=== PATIENT | male | born 1985 | race Two or more races ===

== ENCOUNTER 2019-02-07 16:23 | Emergency (ER) | payer OTHER ==
[~2019-02-07] VITALS: Ht 172.7 cm; Wt 99.8 kg
[2019-02-07 16:56] VITALS: BP 142/90
--- NOTE | 2019-02-07 17:16 | PHYS DOC ---
Past Medical History Past Medical History: No Pertinent History Past Surgical History: No Surgical History Alcohol Use: None Drug Use: None Adult General Chief Complaint Chief Complaint: KNEE INJURY HPI HPI Patient is a 33 year old male who presents with left knee pain that has been ongoing since Sunday. The patient was seen at urgent care prior to arrival who sent him to the ER for blood clot evaluation. The patient states that he has not had any trauma to the knee. He did have a recent plane ride at the end of December. Never had a previous blood clot, or any known clotting disorders. He rates his pain as 4 out of 10 in severity and states it throbs. The patient is unable to straighten his knee all the way. Review of Systems Review of Systems Constitutional: Denies fever or chills [] Eyes: Denies change in visual acuity, redness, or eye pain [] HENT: Denies nasal congestion or sore throat [] Respiratory: Denies cough or shortness of breath [] Cardiovascular: No additional information not addressed in HPI [] GI: Denies abdominal pain, nausea, vomiting, bloody stools or diarrhea [] : Denies dysuria or hematuria [] Musculoskeletal: Reports L knee pain. Integument: Denies rash or skin lesions [] Neurologic: Denies headache, focal weakness or sensory changes [] Endocrine: Denies polyuria or polydipsia [] Complete systems were reviewed and found to be within normal limits, except as documented in this note. Current Medications Current Medications Current Medications Medications (Trade) Dose Ordered Sig/[facility] Start Time Stop Time Status Last Admin Dose Admin Ketorolac Tromethamine (Toradol Im) 30 mg 1X ONCE 02/07/19 17:30 02/07/19 17:31 DC 02/07/19 17:38 30 MG Allergies Allergies Allergies Coded Allergies Type Severity Reaction Last Updated Verified No Known Drug Allergies 02/07/19 No Physical Exam Physical Exam Constitutional: Well developed, well nourished, no acute distress, non-toxic appearance. [] HENT: Normocephalic, atraumatic, bilateral external ears normal, oropharynx moist, no oral exudates, nose normal. [] Eyes: PERRLA, EOMI, conjunctiva normal, no discharge. [] Neck: Normal range of motion, no tenderness, supple, no stridor. [] Cardiovascular:Heart rate regular rhythm, no murmur [] Lungs & Thorax: Bilateral breath sounds clear to auscultation [] Abdomen: Bowel sounds normal, soft, no tenderness, no masses, no pulsatile masses. [] Skin: Warm, dry, no erythema, no rash. [] Back: No tenderness, no CVA tenderness. [] Extremities: Tenderness to L knee, -anterior drawer test, mild edema. No erythema. Neurologic: Alert and oriented X 3, normal motor function, normal sensory function, no focal deficits noted. [] Psychologic: Affect normal, judgement normal, mood normal. [] Current Patient Data Vital Signs Vital Signs Date Time Temp Pulse Resp B/P (MAP) Pulse Ox O2 Delivery O2 Flow Rate FiO2 02/07/19 16:56 98.8 101 16 142/90 (107) 99 Room Air 98.8 EKG EKG [] Radiology/Procedures Radiology/Procedures []PATIENT: AISHA REVELES MACCOUNT: [id number]#: [id number] : 1985 LOCATION: ER AGE: 33 SEX: M EXAM STATUS: REG ER ORD. PHYSICIAN: SHANE PAL APRN REASON: pain PROCEDURE: KNEE LEFT 3V Left knee 3 views. HISTORY: Pain 3 views were taken of the left knee. There is not evidence of an acute fracture or osseous abnormality. There is a joint effusion. IMPRESSION: 1. Joint effusion left knee. 2. No osseous abnormality noted. Electronically signed by: Bry Courtney MD (02/07/2019 6:02 PM) [facility] DICTATED and SIGNED BY: BRY COURTNEY MD DATE: 02/07/191801 PATIENT: AISHA REVELES ACCOUNT: [id number] : 1985 LOCATION: ER AGE: 33 SEX: M EXAM STATUS: REG ER ORD. PHYSICIAN: SHANE PAL APRN REASON: left lower extremity pain PROCEDURE: VENOUS LOWER EXTREMITY LEFT Left lower extremity venous ultrasound, : History: Left lower extremity pain Duplex evaluation including grayscale, color flow and spectral Doppler analysis was performed. The femoral and popliteal veins show no filling defects to suggest DVT. The visualized calf veins are unremarkable. IMPRESSION: There is no sonographic evidence of deep vein thrombosis in the left lower extremity Electronically signed by: Bry Courtney MD (02/07/2019 6:22 PM) [facility] DICTATED and SIGNED BY: BRY COURTNEY MD DATE: 02/07/191821 Course & Med Decision Making Course & Med Decision Making Pertinent Labs and Imaging studies reviewed. (See chart for details) Will get ultrasound to rule out blood clot, and x-ray. Will also give Toradol for inflammation. Dragon Disclaimer Dragon Disclaimer This electronic medical record was generated, in whole or in part, using a voice recognition dictation system. Departure Departure Impression: Primary Impression: Knee pain Disposition: HOME, SELF-CARE Condition: STABLE Patient Instructions: Knee Pain Additional Instructions: Thank you for visiting [facility]. We appreciate you trusting us with your care. If any additional problems come up don't hesitate to return to visit us. Please follow up with your primary care provider so they can plan additional care if needed and know about the problem that you had. If symptoms worsen come back to the Emergency Department. Any concerning symptoms that start such as chest pain, shortness of air, weakness or numbness on one side of the body, running high fevers or any other concerning symptoms return to the ER. Please fill your medications at any pharmacy and follow the prescription instructions. Scripts Naproxen (NAPROXEN) 500 Mg Tablet. 1 TAB PO BID, #60 TAB 1 Refill Prov: SHANE PAL APRN 02/07/19 Problem Qualifiers Primary Impression: Knee pain Chronicity: acute Laterality: left Qualified Codes: M25.562 - Pain in left knee SHANE PAL APRN Feb 07, 2019 17:16
[2019-02-07] MEDS ORDERED: KETOROLAC 60 MG/2 ML VIAL. IM ONE (17:30)
--- NOTE | 2019-02-07 18:05 | RAD ---
Left knee 3 views. HISTORY: Pain 3 views were taken of the left knee. There is not evidence of an acute fracture or osseous abnormality. There is a joint effusion. IMPRESSION: 1. Joint effusion left knee. 2. No osseous abnormality noted. Electronically signed by: Vaibhav Valle MD (02/07/2019 6:02 PM) [facility]
--- NOTE | 2019-02-07 18:25 | RAD ---
Left lower extremity venous ultrasound, : History: Left lower extremity pain Duplex evaluation including grayscale, color flow and spectral Doppler analysis was performed. The femoral and popliteal veins show no filling defects to suggest DVT. The visualized calf veins are unremarkable. IMPRESSION: There is no sonographic evidence of deep vein thrombosis in the left lower extremity Electronically signed by: Vaibhav Valle MD (02/07/2019 6:22 PM) [facility]
[2019-02-07] MEDS ORDERED: NAPR500T8 PO (18:33)
== END 2019-02-07 18:48 | disposition home or self-care (01) ==
LOC: ER 16:23
DX: M25.562 Pain in left knee (principal); M79.605 Pain in left leg
CPT/HCPCS: 73562; 93971; 96372; 99284; J1885